=== PATIENT | female | born 1980 | race Caucasian/White ===

== ENCOUNTER 2024-12-31 02:33 | Emergency (ER) | payer SELFPAY ==
[2024-12-31 02:40] VITALS: BP 145/57; PULSE 74; RESP 18; TEMP 36.9; O2SAT 97
--- NOTE | 2024-12-31 03:04 | W.ED.GENAD ---
Discharge Plan Discharge Details Chief Complaint: PsychEval Clinical Impression: Depression Primary Care Provider: Kaylyn,Local ED Provider: Vito Pittman Home Meds and New Rx's Prescriptions: No Action No Known Home Meds HPI General Date/Time Provider Initiated Documentation: 12/31/24 02:39. HPI Narrative: 44-year-old female who is from [place] but has second home work presents today with [facility] for evaluation. Patient states that her about 9 months ago, since then she has been quite depressed. She was found with her car in the middle of the road. No injury, no accident. She stated that she was extremely tired and P brought her in here for further assessment. She admits to smoking marijuana about 6 hours ago but denies any drugs or alcohol otherwise. She does not want to end her life or harm anyone else but does self describe that she feels depressed. She states she would like to talk to her mental health advocate. She denies taking any extra medications. She denies any medical problems. No other complaints at this time. Related Data Home Medications ?Medication ?Instructions ?Recorded ?Confirmed Unknown [No Known Home Meds] 12/31/24 12/31/24 General Stated Complaint: PsychEval BRIAN: 2 Exam Narrative Exam Narrative: 1.Const: Well-nourished, Well-developed, appearing stated age 2.Eyes: PERRL, no conjunctival injection, and symmetrical lids. 3.ENT: Atraumatic external nose and ears. Moist MM. Neck: Symmetric, trachea midline, No thyromegaly. 4.CVS: +S1/S2, Peripheral pulses 2+ and equal in all extremities. Brisk capillary refill in all extremities. 5.RESP: Unlabored respiratory effort. Clear to auscultation bilaterally. No wheezes rales or rhonchi 6.GI: Soft, Nontender/Nondistended, No hepatosplenomegaly. No guarding or rebound. 7.MSK: Normocephalic/Atraumatic, Extremities w/o deformity or ttp No cyanosis or clubbing, Normal movement of all extremities 8.Skin: Warm, Dry. No rashes or lesions. 9.Neuro: assembler equipment II-XII grossly intact. Sensation grossly intact, no focal neurologic deficits. 10.Psych: (AAO) x3. Appropriate mood and affect Course Vital Signs Vital signs: Vital Signs Temperature 36.9 C 12/31/24 02:40 Pulse 74 12/31/24 02:40 Respiratory Rate 18 12/31/24 02:40 Blood Pressure 145/57 H 12/31/24 02:40 Pulse Oximetry 97 12/31/24 02:40 Temperature 36.9 C 12/31/24 02:40 Pulse 74 12/31/24 02:40 Respiratory Rate 18 12/31/24 02:40 Blood Pressure 145/57 H 12/31/24 02:40 Pulse Oximetry 97 12/31/24 02:40 Oxygen Delivery Method Room Air 12/31/24 02:40 Oxygen Flow Rate 0 12/31/24 02:40 Pain Level 0 12/31/24 02:40 Medical Decision Making 44-year-old female who is from [place] but has second home work presents today with [facility] for evaluation. Patient states that her about 9 months ago, since then she has been quite depressed. She was found with her car in the middle of the road. No injury, no accident. She stated that she was extremely tired and [facility] brought her in here for further assessment. She admits to smoking marijuana about 6 hours ago but denies any drugs or alcohol otherwise. She does not want to end her life or harm anyone else but does self describe that she feels depressed. She states she would like to talk to her mental health advocate. She denies taking any extra medications. She denies any medical problems. No other complaints at this time. Exam demonstrates no trauma or signs of altered mental status. She does appear quite fatigued though. Differential is highest for fatigue secondary to marijuana and lack of sleep however drug or alcohol use is of concern as well. Suicidal episode less likely. Will medically screen and cleared the patient, then have mental health come and evaluate for further assessment. 6:34 AM Patient has slept throughout the night, she is medically stable. Will consult mental health for evaluation. Quality:SDOH Health Related Social Needs: No Data to Display PFSH All Active Problems (Updated 12/31/24 @ 06:35 by Vito Pittman DO) Depression (Chronic) Social History Smoking/Tobacco Use Status: Unknown Smoking risk assessment performed?: Yes Alcohol Intake: never Substance use type: marijuana
--- NOTE | 2024-12-31 03:06 | NUR.NOTE ---
presents today with [facility], found in car parked in the middle of the road in [facility]. per reports of [facility], pt appeared to be asleep at the wheel and difficult to arouse. interchanges suggested mentation was altered due to intoxication of substances. pt requested that she be brought to this facility for someone to talk to. pt states she lost her in March and has been going through a rough patch. Pt was assessed by Dr. Pittman and it was determined that she denies SI/HI has had no prior attempts at self harm and at this time did not endorse wishes of being . Pt was deemed to be appropriate to remain in street clothes and without a CPSO. Plan of care at this time is to sleep and seek evaluation from [facility] in the AM in lieu of labs and urine sample to be sent to lab.
[2024-12-31 03:29] LABS: Abs Immature Grans 0.02 10^3/uL (0.0-0.06); Absolute Basophil Count 0.06 10^3/uL (0.0-0.2); Absolute Eosinophil Count 0.16 10^3/uL (0.0-0.7); Absolute Lymphocyte Count 1.37 10^3/uL (1.2-3.4); Absolute Monocyte Count 0.28 10^3/uL (0.1-0.8); Absolute Neutrophil Count 5.86 10^3/uL (1.2-6.7); Basophils % 0.8 %; Eosinophils % 2.1 %; HCT 34.8 % (36.0-46.0); HGB 11.7 g/dL (11.2-15.7); Immature Grans % 0.3 %; Lymphocytes % 17.7 %; MCH 29.7 pg (27.0-33.0); MCHC 33.6 % (32.0-36.0); MCV 88 fL (80-95); MPV 9.3 fL (8.0-11.0); Monocytes % 3.6 %; Neutrophils % 75.5 %; Platelet Count 256 10^3/uL (130-400); RBC 3.94 10^6/uL (3.93-5.22); RDW 12.9 % (11.7-14.6); RDW-SD 41.4 fL; WBC 7.75 10^3/uL (4.4-10.8)
[2024-12-31 03:32] LABS: ALT 14 U/L (14-59); AST 12 U/L (15-37); Albumin 3.8 g/dL (3.4-5.0); Alkaline Phosphatase 53 U/L (46-116); Anion Gap 5.7 mmol/L (3-11); BUN 12 mg/dL (7-18); Bilirubin, Total 0.4 mg/dL (0.2-1.0); CO2 29.3 mmol/L (21.0-32.0); CREATININE 0.6 mg/dL (0.55-1.02); Calcium 8.9 mg/dL (8.5-10.1); Chloride 104 mmol/L (98-107); Estimated GFR 112.73 (mL/min/1.73m2); Glucose 117 mg/dL (74-106); Potassium 3.7 mmol/L (3.5-5.1); Sodium 139 mmol/L (136-145); TSH (W/Ref FT4) 0.75 uIU/mL (0.36-3.74); Total Protein 7.2 g/dL (6.4-8.2)
[2024-12-31 03:35] LABS: ETHANOL BLOOD < 3.0 mg/dL (<10)
[2024-12-31 03:51] LABS: Acetaminophen < 2 ug/mL (10-30); Salicylate 3.9 mg/dL (<2.8)
[2024-12-31 04:41] LABS: *AMPHETAMINES SCREEN URINE Negative (Negative); *BARBITURATES SCREEN URINE Negative (Negative); *BENZODIAZEPINES SCREEN URINE Negative (Negative); Cannabinoids THC Negative (Negative); Cocaine Screen,Urine Positive (Negative); METHADONE URINE SCREEN Negative (Negative); OPIATES URINE SCREEN Negative (Negative)
[2024-12-31 04:42] LABS: Tricyclic Antidepressants Negative (Negative)
--- NOTE | 2024-12-31 07:38 | W.EDPROG ---
Date of service: 12/31/24 Time of Service: 07:38 Medical Decision Making I received signout on this 44-year-old female who was found asleep in her car. She is medically cleared. She is depressed. She endorses marijuana use. Her urine drug screen was positive for cocaine. She is pending crisis assessment with [facility].She is from [place]. 9:27 AM Patient was assessed by [facility]. She was given a safety plan. She is going to rest in the emergency department. 10:08 AM I met the patient. She was feeling improved. She had no signs of withdrawal. She was not suicidal or homicidal. She Was Going to Take a Taxi to Get Her car. She ambulated and tolerated p.o. in the ED. Quality:SDOH Health Related Social Needs: No Data to Display Discharge Plan Disposition Patient Disposition: Home Discharge Details Clinical Impression: Depression [facility]fren Mackey Home Meds and New Rx's Prescriptions: No Action No Known Home Meds Discharge Instructions Additional Instructions: You are seen in the emergency department for your depression. Please follow-up with your primary care provider. Please return to the emergency department if you do not feel safe or have any other concerns. Discharge Data Discharge Date/Time-TO BE ENTERED AT DEPARTURE: 12/31/24 11:12
--- NOTE | 2024-12-31 09:15 | PDOC.MHCN ---
Date of service: 12/31/24 Time of Service: 09:15 PHQ-9 Over the last 2 weeks, how often have you been bothered by any of the following problems? 1. Little interest or pleasure in doing things: several days 2. Feeling down, depressed, or hopeless: nearly every day 3. Trouble falling or staying asleep, or sleeping too much: nearly every day 4. Feeling tired or having little energy: more than half the days 5. Poor appetite or overeating: more than half the days 6. Feeling bad about yourself - or that you are a failure or have let yourself and your family down: more than half the days 7. Trouble concentrating on things, such as reading the newspaper or watching television: not at all 8. Moving or speaking so slowly that other people could have noticed? - Or the opposite - being so fidgety or restless that you have been moving around a lot more than usual: not at all 9. Thoughts that you would be better off or of hurting yourself in some way: more than half the days Total score: 15 If you checked off any problems, how difficult have these problems made it for you to do your work, take care of things at home, or get along with other people?: somewhat difficult Source: Developed by Drs. Alex Castellanos, Elif Mcclelland, Paco Jo and colleagues, with an educational philip from [employer]. Suicide Severity Rate CSSRS Have you wished you were or wished you could go to sleep and not wake up?: Yes Have you actually had any thoughts of killing yourself?: No CSSRS3 Have you ever done anything, started to do anything or prepared to do anything to end your life?: No Screening Score Total Score: 2 Screening: Positive Mental Health Emergency Note Release [facility] release signed:: Yes Reason for Visit The client is new to [facility] as she is not from this area. She lives in [facility] with unrelated others. She has never been hospitalized before. [facility] called for an assessment after the client was picked up for DUI drugs when she was found by LE sitting on the side of the road asleep following her use of THC. In the last 2 weeks has the pt presented for ES prior to today?: Unknown Client Information Client is: New Non Suicidal Self Injury Current: No History: No Safety Risk/Harm to Self or Others Current Ideation to Harm Self or Others: No Risk: Does risk to harm exist?: No Risk: Low Risk Duty to warn indicated: No Asssessment/Mental Status Appearance: Disheveled Attitude: Cooperative Behavior: Other (Lethargic and struggling to stay awake. ) Speech: Soft Affect: Other (Sleepy) Mood: Anxious Thought process: Goal directed Hallucinations: No Delusions: No Attention: Poor concentration Perception: Not impaired Orientation: Fully orientated Memory: Intact Insight: Good Judgement: Fair Neurovegetative Symptoms Sleep: Decrease Appetitie: No change Interests: No change Energy: Decrease Libido: Not applicable Substance Use: Drug Issues: Dependence Do you use nicotine?: Yes Have you used substances in the last 7 days?: yes, THC daily Additional Issues: Assaultive/Threatening Behavior: No Medical Concerns: No Client engaged in active self harm w/weapon: No Threatening to run away: No Child reported abuse/neglect: No Voluntarily presenting for services: Yes Domestic violence is a concern: No Extreme Psychosis or extreme behavior is present: No Impression The client is a 44-year-old, single, , female 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 She has another home here in [place] which she is visiting this weekend. The client uses she/her pronouns. All underrepresented categories were honored during this assessment. The client engaged in all screening tools during this assessment. The client reported she received a charge of DUI drug this morning following her being found by LE sitting in her car asleep. She reported losing her fiance 9 moths ago in March due to a carotid artery issue. She denied having any therapist or other specialist outside of her PCP in [place]. THe clshanell presented lying in bed in street clothes reporting and appearing very sleepy. She engaged as she could while also being noted to be falling asleep and needing to be awoken by this clinician several times throughout the assessment. She reported her mood is fine and she is appropriate throughout. She has good insight and fair judgment. She reported her appetite is fine however, her sleep is awful. She presents as fully oriented. Resources Reosurces reviewed and given:: [id number] Plan/Disposition Recommended Disposition: Community resources (In her home town). Plan: It was recommended to ED staff that she be allowed to sleep for a bit if possible, as she is not feeling well and was notably sleepy throughout the assessment. The client engaged in a safety plan which was faxed to the ED upon completion. She will do a check in later today to let [facility] know how she is doing. Person reported agreement to plan: Yes Reports/communication Outcome discussed with: ED/Personnel
[2024-12-31 10:25] VITALS: BP 132/66; PULSE 65; RESP 16; O2SAT 99
== END 2024-12-31 11:12 | disposition home or self-care (01) ==
PROVIDERS: Student in an Organized Health Care Education/Training Program; Emergency Provider Emergency Medicine
DX: F32.A Depression, unspecified (principal)
CPT/HCPCS: 00123; 36415; 80053; 80307; 96127; 99283; 80320; 80329; 84443; 85025

== ENCOUNTER 2024-12-31 15:01 | Emergency (ER) | payer SELFPAY ==
[2024-12-31 15:17] VITALS: BP 123/79; PULSE 75; RESP 16; TEMP 36.6; O2SAT 96
--- NOTE | 2024-12-31 16:22 | ED.GENADUL_ITS ---
Discharge Plan Disposition Patient Disposition: Home Condition: Stable Discharge Details Clinical Impression: Difficulty refilling prescriptions Primary Care Provider: Kaylyn,Local ED Provider: Vito Oliver Home Meds and New Rx's Prescriptions: No Action alprazolam [Xanax] 1 mg tablet 1 mg PO BID Discharge Instructions Instructions: Hydroxyzine Additional Instructions: You were seen in the emergency department for your request for benzo, call your primary provider that prescribes you this, they can send a short course to a local pharmacy, we have provided you with some hydroxyzine, please return for any fevers, psychosis or delirium. Discharge Data Discharge Date/Time-TO BE ENTERED AT DEPARTURE: 12/31/24 16:43 HPI General Date/Time Provider Initiated Documentation: 12/31/24 15:25 . HPI Narrative: 44 year-old female presents to ED today by POV/ambulating with a chief complaint of multiple visits today, was arrested for DUI last night by [facility]- has no access to belongings in her vehicle- states she is out of her xanax- has taken BID for years, last dose yesterday morning- feeling restless and body aches, also minor cough. Quality described as generalized nausea, body aches, restlessness, no radiation to fever, chest pain, shortness of breath, vomiting, visual changes. Severity is described as moderate. Palliating factors include nothing specific attempted. Provoking factors include nothing specific. Patient has housing for tonight arranged by [employer] [facility]. Patient not anticoagulated. Related Data Home Medications ?Medication ?Instructions ?Recorded ?Confirmed alprazolam 1 mg tablet (Xanax) 1 mg PO BID 12/31/24 12/31/24 Allergies Allergy/AdvReac Type Severity Reaction Status Date / Time Penicillins Allergy Mild rash Verified 12/31/24 15:15 General Stated Complaint: RespSymp BRIAN: 4 Review of Systems All systems reviewed & are unremarkable except as noted in HPI and below Exam Narrative Exam Narrative: GENERAL APPEARANCE: Well-nourished, non-toxic, awake and alert, atraumatic, no acute distress. SKIN: Warm, pink, dry, intact, without rashes/lesions/ulcerations. HEAD: Normocephalic, atraumatic, normal hair distribution for gender/age. EYES: Normal conjunctiva, no exudates on lids/lashes. ENT: Nares patent, no circumoral cyanosis, no facial swelling NECK: Supple, trachea midline, painless cervical ROM. LUNGS/CHEST: Non-labored respirations, normal A/P diameter, symmetrical expansion, no chest wall deformity HEART (CV/PV): No peripheral edema, no JVD. ABDOMEN: Soft, non-distended, no guarding. MSK: Normal ROM, no swelling/deformity to bilateral UEs or LEs, moving all extremities without weakness, no cyanosis, spine midline without tenderness, normal curvature. NEURO: Mental Status AAOx4 - alert to person, place, time, events No facial droop, no forehead involvement. Motor: No focal weakness - strength 5/5 in bilateral UEs and LEs, proximal and distal, symmetric. Sensory: sensation intact to light touch globally. Gait normal: patient ambulated without ataxia into ED room. PSYCH: dysthymic, cooperative, pleasant, appropriate speech Course Vital Signs Vital signs: Vital Signs Temperature 36.6 C 12/31/24 15:17 Pulse 75 12/31/24 15:17 Respiratory Rate 16 12/31/24 15:17 Blood Pressure 123/79 12/31/24 15:17 Pulse Oximetry 96 12/31/24 15:17 Temperature 36.6 C 12/31/24 15:17 Temperature Source Oral 12/31/24 15:17 Pulse 75 12/31/24 15:17 Respiratory Rate 16 12/31/24 15:17 Blood Pressure 123/79 12/31/24 15:17 Blood Pressure Position Sitting 12/31/24 15:17 Pulse Oximetry 96 12/31/24 15:17 Oxygen Delivery Method Room Air 12/31/24 15:17 Oxygen Flow Rate 0 12/31/24 15:17 Pain Level 0 12/31/24 15:17 Medical Decision Making This dictation utilizes [id number] dictation software and may contain unedited grammatical errors. 44 year-old female presents to ED today by POV/ambulating with a chief complaint of multiple visits today, was arrested for DUI last night by [facility]- has no access to belongings in her vehicle- states she is out of her xanax- has taken BID for years, last dose yesterday morning- feeling restless and body aches, also minor cough. Quality described as generalized nausea, body aches, restlessness, no radiation to fever, chest pain, shortness of breath, vomiting, visual changes. Severity is described as moderate. Palliating factors include nothing specific attempted. Provoking factors include nothing specific. Patient has housing for tonight arranged by [facility]. Patients' medical history: Depression. Family and social history: Intoxication last night. Pertinent exam findings / vital signs include benign cardiopulmonary status, nontoxic and afebrile, benign abdomen, neuro intact. Differential / pathologies of concern include benzodiazepine withdrawal, anxiety. Diagnostic studies of: - None. Interventions of: - Counseled the patient extensively on contacting her normal prescriber to obtain further benzodiazepine, I did provide her with 1 dose of Valium due to the potential for dangerous withdrawal syndrome with the patient's multiple year history of twice a day Xanax. ED Course/Assessment/Plan: 44-year-old female was arrested by [facility] last night for DUI, has no access to her belongings including her prescription Xanax which she has taken twice a day for many years in the vehicle, benzodiazepine withdrawal can be significantly dangerous so I did provide her 1 dose of long-acting Valium and recommend she contact her regular provider that provides this prescription, strict return criteria for any seizure activity or psychosis, did provide 2 doses of hydr oxyzine for other anxiety. Findings not consistent with severe withdrawal, seizure, psychosis-no respiratory distress do not feel there is a need for respiratory testing as the patient has not been observed coughing. Disposition of difficulty refilling prescriptions. Patient verbalized understanding of the plan and return to ED criteria and engaged in shared decision making. Medical Records Medical records reviewed: Yes I reviewed the patient's medical records. Quality:[facility] Health Related Social Needs: No Data to Display [facility] All Active Problems (Updated 12/31/24 @ 16:29 by BRENNEN Lorenzo) Difficulty refilling prescriptions (Acute) Depression (Chronic) Social History Smoking/Tobacco Use Status: Unknown Smoking risk assessment performed?: Yes Alcohol Intake: never Substance use type: marijuana
[2024-12-31] MEDS: diazePAM 2 MG TAB PO (16:33)
[2024-12-31] MEDS: hydrOXYzine HCL 25 MG TAB 50 MG PO (16:33)
[2024-12-31 16:39] VITALS: BP 127/77; PULSE 74; RESP 16; O2SAT 99
== END 2024-12-31 16:43 | disposition home or self-care (01) ==
PROVIDERS: Emergency Provider Physician Assistant
DX: F32.A Depression, unspecified (principal); Z78.9 Other specified health status
CPT/HCPCS: 99283 ×2